=== PATIENT | female | born 1985 | race Caucasian/White ===

== ENCOUNTER 2017-12-24 16:15 | Emergency (ER) | payer OTHER ==
[2017-12-24 18:56] VITALS: BP 125/82
--- NOTE | 2017-12-24 19:02 | UC ---
Complaint Female HPI - HPI Summary HPI Summary: Pt c/o sudden onset of dysuria, frequency, urgency X 2 days. - History Of Current Complaint Chief Complaint: UCGU Stated Complaint: URINARY Time Seen by Provider: 12/24/17 18:56 Hx Obtained From: Patient Hx Last Menstrual Period: 12/15/17 ?: No Onset/Duration: Sudden Onset, Lasting Days Timing: Intermittent Severity Initially: Mild Severity Currently: Mild Pain Intensity: 0 Character: Dull, Burning Aggravating Factor(s): Urination Alleviating Factor(s): Nothing Associated Signs And Symptoms: Positive: Negative - Risk Factors Ectopic Risk Factor: Maternal Age ^ 30 Ovarian Torsion Risk Factor: Reproductive Age - Allergies/Home Medications Allergies/Adverse Reactions: Allergies Allergy/AdvReac Type Severity Reaction Status Date / Time No Known Allergies Allergy Verified 12/24/17 18:53 PMH/Surg Hx/FS Hx/Imm Hx Previously Healthy: Yes - Surgical History Surgical History: None - Family History Known Family History: Positive: Cardiac Disease - Social History Occupation: Employed Full-time Lives: With Family Alcohol Use: Weekly Substance Use Type: None Smoking Status (MU): Never Smoked Tobacco Have You Smoked in the Last Year: No Household Exposure Type: Pipe Review of Systems Constitutional: Fatigue Skin: Negative Eyes: Negative ENT: Negative Respiratory: Negative Cardiovascular: Negative Gastrointestinal: Negative Genitourinary: Dysuria, Frequency, Urgency Motor: Negative Neurovascular: Negative Musculoskeletal: Negative Neurological: Negative Psychological: Negative Is Patient Immunocompromised?: No All Other Systems Reviewed And Are Negative: Yes Physical Exam Triage Information Reviewed: Yes Appearance: Well-Appearing Vital Signs: Initial Vital Signs Temp 100.1 F 12/24/17 18:52 Pulse 91 12/24/17 18:52 Resp 18 12/24/17 18:52 BP 125/82 12/24/17 18:52 Pulse Ox 100 12/24/17 18:52 Eye Exam: Normal ENT Exam: Normal Dental Exam: Normal Neck exam: Normal Respiratory Exam: Normal Cardiovascular Exam: Normal Abdominal Exam: Other Abdomen Description: Positive: Other: - suprapubic tenderness Musculoskeletal Exam: Normal Neurological Exam: Normal Psychological Exam: Normal Skin Exam: Normal Complaint Female Dx - Differential Dx/Diagnosis Differential Diagnosis/HQI/PQRI: Ureteral Stone, Urinary Tract Infection Provider Diagnoses: UTI Discharge - Discharge Plan Condition: Stable Disposition: HOME Prescriptions: Cephalexin CAP* [Keflex 500 CAP*] 500 mg PO Q12H #10 cap Phenazopyridine TAB* [Pyridium 100 mg TAB*] 100 mg PO Q8H #6 tab Patient Education Materials: Urinary Tract Infection in Women (ED) Referrals: [facility]FERR[facility] [Outside] No Primary Care Phys,NOPCP [Primary Care Provider] - Additional Instructions: Please follow up with your PCP or return to clinic as needed.
== END 2017-12-24 19:09 | disposition home or self-care (01) ==
LOC: UCCORT 16:15
DX: N39.0 Urinary tract infection, site not specified (principal); Z77.22 Contact with and (suspected) exposure to environmental tobacco smoke (acute) (chronic)
CPT/HCPCS: 81003; 87077; 87086; 87186; 99202; G0463

== ENCOUNTER 2018-06-17 14:21 | Emergency (ER) | payer OTHER ==
--- NOTE | 2018-06-17 16:02 | ED ---
Dizziness - History Of Current Complaint Chief Complaint: UCEar Stated Complaint: DIZZY/EAR COMPLAINT Time Seen by Provider: 06/17/18 15:20 - Allergies/Home Medications Allergies/Adverse Reactions: Allergies Allergy/AdvReac Type Severity Reaction Status Date / Time No Known Allergies Allergy Verified 06/17/18 14:40 PMH/Surg Hx/FS Hx/Imm Hx Endocrine/Hematology History: Denies: Hx Diabetes, Hx Thyroid Disease Cardiovascular History: Denies: Hx Hypertension Respiratory History: Denies: Hx Asthma Infectious Disease History: No Infectious Disease History: Denies: Traveled Outside the [place] in Last 30 Days - Family History Known Family History: Positive: Cardiac Disease - Social History Alcohol Use: Weekly Substance Use Type: Reports: None Smoking Status (MU): Never Smoked Tobacco Have You Smoked in the Last Year: No Review of Systems Constitutional: Negative Eyes: Negative ENT: Negative Cardiovascular: Negative Respiratory: Negative Gastrointestinal: Negative Genitourinary: Negative Musculoskeletal: Negative Skin: Negative Neurological: Other - dizziness All Other Systems Reviewed And Are Negative: Yes Physical Exam - Summary Physical Exam Summary: Vital Signs Reviewed: Yes Appearance: Positive: Well-Appearing HEENT: left ear - cerumen impaction obscuring right TM Skin: Neg skin lesions Respiratory/Lung Sounds: Positive: Clear to Auscultation Cardiovascular: Positive: Normal, RRR, S1, S2 Abdomen Description: Positive: Nontender Musculoskeletal: Positive: Normal Neurological: Positive: Normal Psychiatric: Positive: Normal Vital Signs On Initial Exam: Initial Vitals Temp Pulse Resp BP Pulse Ox 37.6 C 76 16 131/76 100 06/17/18 14:34 06/17/18 14:34 06/17/18 14:34 06/17/18 14:34 06/17/18 14:34 Diagnostics - Vital Signs Vital Signs Temp Pulse Resp BP Pulse Ox 06/17/18 14:34 37.6 C 76 16 131/76 100 - Laboratory Lab Results: Lab Results 06/17/18 Range/Units 15:45 POC Urine Color Yellow POC Urine Clarity Clear POC Urine pH 5.5 (5-9) POC Ur Specif [place] >= 1.030 (1.010-1.030) POC Urine Protein Negative (Negative) POC Ur Glucose (UA) Negative (Negative) POC Urine Ketones Negative (Negative) POC Urine Blood Negative (Negative) POC Urine Nitrite Negative (Negative) POC Urine Bilirubin Negative (Negative) POC Urine Urobilinogen 0.2 (Negative) POC U Leukocyte Esteras Negative (Negative) Lab Statement: Any lab studies that have been ordered have been reviewed, and results considered in the medical decision making process. Dizzy Course/Dx - Course Course Of Treatment: pt feels better after cerumen disimpaction in right ear, UA neg- but SG 1.030. blood drawn to r/o anemia. orthostatics WNL - Diagnoses Provider Diagnoses: Excessive cerumen in right ear canal, Dehydration, mild Discharge - Sign-Out/Discharge Documenting (check all that apply): Patient Departure - Discharge Plan Condition: Stable Disposition: HOME Patient Education Materials: Dizziness (ED) Referrals: No Primary Care Phys,NOPCP [Primary Care Provider] - Additional Instructions: Please follow up with PCP if symptoms persist - Billing Disposition and Condition Condition: STABLE Disposition: Home
[2018-06-17 16:07] VITALS: BP 123/74
[2018-06-17 19:29] LABS: ABS Basophils 0 10^3/ul (0-0.2); ABS Eosinophils 0 10^3/ul (0-0.6); ABS Lymphocytes 1.8 10^3/ul (1.0-4.8); ABS Monocytes 0.4 10^3/ul (0-0.8); ABS Neutrophils 5.9 10^3/ul (1.5-7.7); ABS Nucleated RBC 0 10^3/ul; Eosinophil % 0.1 % (0-6); Hematocrit 37 % (35-47); Hemoglobin 12.6 g/dl (12.0-16.0); Lymphocyte % 21.5 % (25-47); Mean Corpuscular HGB Conc 34 g/dl (31-36); Mean Corpuscular Hemoglobin 33 pg (27-31); Mean Corpuscular Volume 96 fL (80-97); Mean Platelet Volume 7.1 um3 (7.4-10.4); Nucleated Red Blood Cells % 0; Platelet Count 217 10^3/ul (150-450); Red Blood Count 3.89 10^6/ul (4.00-5.40); Red Cell Distribution Width 14 % (10.5-15); White Blood Count 8.2 10^3/ul (3.5-10.8)
[2018-06-17 19:37] LABS: EGFR Non-African American 103.8 (>60)
== END 2018-06-17 16:13 | disposition home or self-care (01) ==
LOC: UCCORT 14:21
DX: H61.21 Impacted cerumen, right ear (principal); E86.0 Dehydration
CPT/HCPCS: 36415; 80053; 81003; 85025; 99213; G0463